=== PATIENT | male | born 2000 | race Caucasian/White ===

== ENCOUNTER 2018-03-19 15:15 | Emergency (ER) | payer OTHER ==
[2018-03-19] MEDS ORDERED: Cephalexin CAP* 500 MG PO ONE (16:36)
--- NOTE | 2018-03-19 16:36 | ED ---
Skin Complaint - HPI Summary HPI Summary: 18-year-old male presents with right arm laceration today. He states that he cleaned the wound out but past couple days started to have pus drainage. He admits to some mild erythema around the wound. No fevers. No chills. He has no medical conditions. No allergies to medication. Immunizations are up-to- date. He currently lives in [place]. - History of Current Complaint Chief Complaint: EDExtremityUpper Time Seen by Provider: 03/19/18 15:35 Stated Complaint: RT ARM LAC Pain Intensity: 6 - Allergy/Home Medications Allergies/Adverse Reactions: Allergies Allergy/AdvReac Type Severity Reaction Status Date / Time No Known Allergies Allergy Verified 03/19/18 15:52 PMH/Surg Hx/FS Hx/Imm Hx Endocrine/Hematology History: Denies: Hx Anticoagulant Therapy Cardiovascular History: Denies: Hx Myocardial Infarction Infectious Disease History: No Infectious Disease History: Denies: Traveled Outside the [place] in Last 30 Days - Family History Known Family History: Negative: Diabetes - Social History Alcohol Use: Occasionally Substance Use Type: Reports: None Smoking Status (MU): Never Smoked Tobacco Review of Systems Negative: Fever Negative: Chest Pain Negative: Shortness Of Breath Positive: Other - right lac All Other Systems Reviewed And Are Negative: Yes Physical Exam Triage Information Reviewed: Yes Vital Signs On Initial Exam: Initial Vitals Temp Pulse Resp BP Pulse Ox 98.4 F 69 15 120/66 99 03/19/18 15:25 03/19/18 15:25 03/19/18 15:25 03/19/18 15:25 03/19/18 15:25 Vital Signs Reviewed: Yes Appearance: Positive: Well-Appearing Skin: Positive: Warm, Dry, Other - 3cm by 1/2cm by 1/2cm laceration with pus that removed 3 foreign bodies from Head/Face: Positive: Normal Head/Face Inspection Eyes: Positive: Normal, Conjunctiva Clear ENT: Positive: Pharynx normal Respiratory/Lung Sounds: Positive: Clear to Auscultation, Breath Sounds Present Cardiovascular: Positive: Normal, RRR Musculoskeletal: Positive: Normal Neurological: Positive: Normal Psychiatric: Positive: Normal Diagnostics - Vital Signs Vital Signs Temp Pulse Resp BP Pulse Ox 03/19/18 15:25 98.4 F 69 15 120/66 99 - Laboratory Lab Statement: Any lab studies that have been ordered have been reviewed, and results considered in the medical decision making process. Course/Dx - Course Course Of Treatment: 18-year-old male presents with right arm laceration today. He states that he cleaned the wound out but past couple days started to have pus drainage. He admits to some mild erythema around the wound. No fevers. No chills. He has no medical conditions. No allergies to medication. Immunizations are up-to-date. He currently lives in [place]. On exam has 3 cm by half centimeter laceration with pus in it. debride wound and removed 3 foreign bodies. Cleaned wound out. We'll place on Keflex. Got wound culture. Told to follow up with primary. Patient understands agrees with plan. - Differential Diagnoses - Skin Complaint Differential Diagnoses: Abscess, Cellulitis, Other - laceration - Diagnoses Provider Diagnoses: Cellulitis of right arm Discharge - Sign-Out/Discharge Documenting (check all that apply): Patient Departure - Discharge Plan Condition: Good Disposition: HOME Prescriptions: Cephalexin CAP* [Keflex CAP*] 500 mg PO TID #29 cap Patient Education Materials: Cellulitis (ED) Referrals: No Primary Care Phys,NOPCP [Primary Care Provider] - Additional Instructions: Take Keflex three times a day for 10 days wash with soap and water twice a day use topical antibiotic and keep covered Follow up with primary within 5 days Return to ED if develop fever, area of redness spreads, or any new or worsening symptoms - Billing Disposition and Condition Condition: GOOD Disposition: Home
[2018-03-19 17:13] VITALS: BP 105/52
--- NOTE | 2018-03-22 06:43 | PN ---
Progress Note - Progress Note Date of Service: 03/22/18 Note: patient wound culture grew staph aureus and serratia marcescens. patient placed on keflex which final culture shows is sensitive to. no further action required.
== END 2018-03-19 17:11 | disposition home or self-care (01) ==
LOC: ED 15:15
DX: S41.121A Laceration with foreign body of right upper arm, initial encounter (principal); L03.113 Cellulitis of right upper limb; B95.61 Methicillin susceptible Staphylococcus aureus infection as the cause of diseases classified elsewhere; B96.89 Other specified bacterial agents as the cause of diseases classified elsewhere; X58.XXXA Exposure to other specified factors, initial encounter; Y93.9 Activity, unspecified; Y92.9 Unspecified place or not applicable
CPT/HCPCS: 12032; 87070; 87077; 87186; 87205; 99282; A9270-GY